=== PATIENT | female | born 1965 | race African-American/Black ===

== ENCOUNTER → 2017-04-01 | Outpatient (CLI) | payer MEDICARE, OTHER ==
[~2017-04-01] MED LIST: 1-ME1LIQ PO; ADVA250A INH; IPRA17I INH; LIDO5CRE2 TOPICAL; RISP2TAB2 PO; [UNRECOGNIZED DRUG - CODE] PO
[2017-04-01 11:20] LABS: HEMATOCRIT 43.3 % (35.0-46.0); MEAN CELL VOLUME 92.6 FL (80.0-100.0); MEAN CORPUSCULAR HGB CONC 33.5 % (32.0-36.0); PLATELET COUNT 253 TH/MM3 (150-450); RED BLOOD COUNT 4.67 MIL/MM3 (4.00-5.30); RED CELL DISTRIBUTION WIDTH 13.9 % (11.6-17.2); REVIEW FLAG FINAL; WHITE BLOOD COUNT 8.5 TH/MM3 (4.0-11.0)
[2017-04-01 11:45] LABS: ANION GAP 9 MEQ/L (5-15); AST (GOT) 21 U/L (15-37); BICARBONATE 24.4 MEQ/L (21.0-32.0); BLOOD UREA NITROGEN 5 MG/DL (7-18); CHLORIDE 106 MEQ/L (98-107); GLOMERULAR FILTRATION RATE 114 ML/MIN (>89); GLUCOSE,FASTING 87 MG/DL (74-99); SODIUM (NA) 139 MEQ/L (136-145)
[2017-04-01 11:49] LABS: ALKALINE PHOSPHATASE 58 U/L (45-117); ALT (GPT) 23 U/L (10-53); HDL CHOLESTEROL 63.6 MG/DL (40.0-60.0); LDL CHOLESTEROL 127 MG/DL (0-99); TOTAL BILIRUBIN ADULT 0.5 MG/DL (0.2-1.0)
[2017-04-01 12:03] LABS: POTASSIUM 3.8 MEQ/L (3.5-5.1)
[2017-04-01 17:17] LABS: HEMOGLOBIN A1a 1.1 %; HEMOGLOBIN A1b 0.8 %; HEMOGLOBIN Ao 85.6 %; HEMOGLOBIN F 1.3 %; HEMOGLOBIN LA1C 1.9 %; HEMOGLOBIN P3 3.5 %
== END ==
LOC: CLAB 10:48
DX: E78.5 Hyperlipidemia, unspecified (principal); D64.9 Anemia, unspecified; E11.9 Type 2 diabetes mellitus without complications; E03.9 Hypothyroidism, unspecified; Z13.228 Encounter for screening for other metabolic disorders
CPT/HCPCS: 36415; 80053; 80061; 83036; 84443; 85027

== ENCOUNTER 2017-04-14 06:53 | Emergency (ER) | payer MEDICARE, OTHER ==
[~2017-04-14] VITALS: Ht 167.6 cm; Wt 97.5 kg
[2017-04-14 06:56] VITALS: BP 120/76; PULSE 93; RESP 18; TEMP 98.6; O2SAT 97
== END 2017-04-14 10:20 | disposition left against medical advice (07) ==
LOC: NED 06:53
DX: M25.561 Pain in right knee (principal); Z53.21 Procedure and treatment not carried out due to patient leaving prior to being seen by health care provider
CPT/HCPCS: 99281

== ENCOUNTER 2017-06-04 19:29 | Emergency (ER) | payer MEDICARE, OTHER ==
[~2017-06-04] VITALS: Ht 167.6 cm; Wt 115.0 kg
[2017-06-04 19:30] VITALS: BP 203/107; PULSE 103; RESP 15; TEMP 98.3; O2SAT 99
== END 2017-06-04 20:48 | disposition left against medical advice (07) ==
LOC: NED 19:29
DX: Z53.21 Procedure and treatment not carried out due to patient leaving prior to being seen by health care provider (principal)
CPT/HCPCS: 99281